=== PATIENT | female | born 1940 | race Caucasian/White ===

== ENCOUNTER 2017-06-10 08:34 | Day surgery (SDC) | payer MEDICARE, OTHER ==
[~2017-06-10] VITALS: Ht 165.1 cm; Wt 82.7 kg
[~2017-06-10 08:34] MED LIST: CALCIUM PO; CIPR250 PO; CITRACAL PO; FOLI1 PO; FOLI400 PO; LANS15EC PO; LEVSOD88 PO; LISINOPRIL PO; METTREX2.5 PO; PRAV10 PO; PRAVASTATIN SOD10 MG PO; PROBIOTIC1 EAC1 PO; Prinivil10 MG PO; TOCO400 PO; VITAMIN D PO; VITAMIN D-32000 UNIT PO; Vitamin D400 UNI1 PO; [UNRECOGNIZED DRUG - OTHER] PO
[2017-06-10] MEDS ORDERED: LOSA25 (08:52)
== END 2017-06-10 11:05 | disposition home or self-care (01) ==
LOC: ORSCSDS 08:34
DX: R19.5 Other fecal abnormalities (principal); D12.2 Benign neoplasm of ascending colon; D12.3 Benign neoplasm of transverse colon; K52.9 Noninfective gastroenteritis and colitis, unspecified; Z86.010 Personal history of colon polyps; K57.30 Diverticulosis of large intestine without perforation or abscess without bleeding; K64.8 Other hemorrhoids; K64.4 Residual hemorrhoidal skin tags; I10 Essential (primary) hypertension; E03.9 Hypothyroidism, unspecified; Z79.899 Other long term (current) drug therapy
CPT/HCPCS: 88305; J1980

== ENCOUNTER → 2023-02-21 | Outpatient (CLI) | payer MEDICARE ==
[~2023-02-21] MED LIST changes: +LOSA25; +METHOTREXATE2.510 PO; +OLMESARTAN-HCT1 EAC5 PO; +XARELTO20 MG PO
[2023-02-22 12:23] LABS: Stool Occult Bld Immuno 1 Positive (NEGATIVE)
== END | disposition home or self-care (01) ==
LOC: LAB 10:00 → LAB SHORT 10:00
PROVIDERS: Internal Medicine
DX: D53.9 Nutritional anemia, unspecified (principal)
CPT/HCPCS: 82274

== ENCOUNTER 2023-02-25 16:42 | Inpatient (IN) | payer MEDICARE, OTHER ==
[~2023-02-25] VITALS: Ht 165.1 cm; Wt 66.5 kg
[~2023-02-25 16:42] MED LIST changes: -METHOTREXATE2.510 PO; -OLMESARTAN-HCT1 EAC5 PO; -XARELTO20 MG PO
[2023-02-25 17:50] LABS: BASOPHILS ABSOLUTE AUTO 0.12 K/mm3 (0.00-0.23); BASOPHILS PERCENT AUTO 1 % (0-2); EOSINOPHILS PERCENT AUTO 2 % (0-6); Hematocrit 23.6 % (33.0-51.0); Hemoglobin 7.3 g/dL (11.5-16.0); IMMATURE GRAN ABSOLUTE AUTO 0.29 K/mm3 (0.00-0.10); IMMATURE GRAN PERCENT AUTO 2 % (0-1); LYMPHOCYTES ABSOLUTE AUTO 1.97 K/mm3 (0.84-5.20); LYMPHOCYTES PERCENT AUTO 13 % (21-46); MONOCYTES ABSOLUTE AUTO 1.22 K/mm3 (0.16-1.47); MONOCYTES PERCENT AUTO 8 % (4-13); Mean Corpuscular HGB 26.7 pg (26.0-34.0); Mean Corpuscular HGB Conc 30.9 g/dL (31.5-36.5); Mean Corpuscular Volume 86 fL (80-100); Mean Platelet Volume 9.6 fL (9.1-12.4); NEUTROPHILS PERCENT AUTO 74 % (41-73); Platelet Count 418 K/mm3 (150-400); RDW Coefficient Variation 14.2 % (11.7-14.2); RDW Standard Deviation 43.6 fL (35.1-46.3); Red Blood Cell Count 2.73 M/mm3 (3.80-5.20)
[2023-02-25 17:58] LABS: International Normalized Ratio 1.14; Prothrombin Time Results 11.9 Sec (9.7-11.5)
[2023-02-25 18:08] LABS: Albumin, Blood 3.3 g/dL (3.4-5.0); Albumin/Globulin Ratio 0.7 (0.8-1.8); Bilirubin, Total 0.3 mg/dL (0.1-1.0); Bun/Creatinine Ratio 22.4 (12.0-20.0); Calcium, Blood 9.7 mg/dL (8.5-10.1); Creatinine, Blood 0.94 mg/dL (0.40-1.00); Globulin, Blood 4.6 g/dL (2.2-4.0); Potassium, Blood 3.9 mmol/L (3.5-5.5); Total Protein, Blood 7.9 g/dL (6.4-8.2)
[2023-02-25] MEDS ORDERED: METHOTREXATE2.510 PO (19:21)
[2023-02-25] MEDS ORDERED: OLMESARTAN-HCT1 EAC5 PO (19:22)
[2023-02-25] MEDS ORDERED: XARELTO20 MG PO (19:24)
[2023-02-26] VITALS (27 sets, daily range): BP systolic 98–151; BP diastolic 42–81
[2023-02-26 04:45] LABS: Bun/Creatinine Ratio 19.1 (12.0-20.0); Calcium, Blood 8.6 mg/dL (8.5-10.1); Creatinine, Blood 0.89 mg/dL (0.40-1.00); Potassium, Blood 3.9 mmol/L (3.5-5.5)
--- NOTE | 2023-02-26 05:13 | NUR ---
GEOLOGICAL SCIENCE TEACHER SUMMARY PT ARRIVES ER ADMIT. UPON ARRIVAL SHE IS ALERT, ORIENTED, NONDISTRESSED, C/O NO PAIN NO NAUSEA NO VOMITING. NO CP OR SOB. LUNGS ARE CLEAR SKIN IS WELL CONDITIONED. NVI. PT ABLE TO AMBULATE INDEPENDENTLY TO BATHROOM THIS SHIFT, HER FAMILY MEMBER REMAINS AT BEDSIDE WITH HER. NO ACUTE CHANGES.
[2023-02-26 10:21] LABS: Hematocrit 21.8 % (33.0-51.0); Hemoglobin 6.6 g/dL (11.5-16.0)
[2023-02-26 17:49] LABS: Hematocrit 25.1 % (33.0-51.0); Hemoglobin 7.9 g/dL (11.5-16.0)
--- NOTE | 2023-02-26 17:53 | NUR ---
SHIFT SUMMARY PT A&OX4. SP02>90% ON RA. TELEMETRY SHOWS NSR, HR 60'S-70'S. BP SOFT THIS AM. REPEAT H&H LOW, SEE RESULTS. CALL PLACED TO MD ALONZO. MD ALONZO W/ ORDERS FOR 1 UNIT PRBC. INFUSED PER PROTOCOL. AWAITING RESULTS FOR REPEAT H&H. BP INCREASED AFTER INFUSION. ECHO DONE THIS SHIFT, SEE RESULTS. PT UP INDEPENDENTLY TO BATHROOM TO VOID. DENIES DIZZINESS/LIGHTHEADEDNESS. PT NPO SINCE NOON FOR PROCEDURE. NEW IV IN R FOREARM. PT TO SCOPE AT 1830. MULTIPLE FAMILY IN ROOM
--- NOTE | 2023-02-26 19:24 | NUR ---
02/26/231923 Dayday Bernal HISTORY, CHART, MEDICATIONS AND ALLERGIES REVIEWED BEFORE START OF PROCEDURE. PATIENT CONFIRMS NPO STATUS AND AGREES WITH SCHEDULED PROCEDURE. 3-LEAD EKG REVIEWED WITH PHYSICIAN PRIOR TO START OF PROCEDURE. MONITOR INTACT WITH CONTINUOUS PULSE OXIMETRY,CAPNOGRAPHY, 3-LEAD EKG, INTERMITTENT BP. SUPPLEMENTAL O2 TO BE TITRATED THROUGHOUT PROCEDURE TO MAINTAIN O2 SATURATION ABOVE 90%. PATIENT DETERMINED TO BE ASA APPROPRIATE FOR PROPOFOL SEDATION PRIOR TO START OF PROCEDURE BY DR. CEJA. Bite Block Placed.
--- NOTE | 2023-02-26 20:12 | NUR ---
ASSUMPTION OF CARE: PATIENT IS ALERT AND ORIENTED, NO SIGNS OF CARDIAC OR PULM DISTRESS. IS ON RA. DID RECIEVE PROPOFOL DURING EGD. DR. CEJA GOING OVER ABNORMAL RESULTS WITH PATIENT AND SON. PATIENT WILL NOT NEED COLOPREP ACCORDING TO THE RETURNING DAY BRICK VENEER MAKER. WILL FOLLOW UP WITH DR. CEJA. AFEBRILE AND VSS. DENIES CHEST PAIN PRESSURE OR SOB. 1P TX A THIS TIME DUE TO RECENT ADMINISTRATION OF PROP. TELE IN PLACE.
[2023-02-27 03:36] VITALS: BP 115/50
--- NOTE | 2023-02-27 03:42 | NUR ---
EOS: ONLY CHANGES FROM ASSUMPTION OF CARE IS VSS BLOOD PRESSURE SLOWLY TRENDING DOWN, ANTICIPATING DROPPED Hgb ON AM LABS. A/O X 4, SON IN THE ROOM, NO CONCERNS AT THIS TIME. STILL DENYING CHEST PAIN PRESSURE OR SOB.
[2023-02-27 04:59] LABS: BASOPHILS ABSOLUTE AUTO 0.12 K/mm3 (0.00-0.23); BASOPHILS PERCENT AUTO 1 % (0-2); EOSINOPHILS ABSOLUTE AUTO 0.32 K/mm3 (0.00-0.68); EOSINOPHILS PERCENT AUTO 3 % (0-6); Hematocrit 24.7 % (33.0-51.0); Hemoglobin 7.9 g/dL (11.5-16.0); IMMATURE GRAN PERCENT AUTO 2 % (0-1); LYMPHOCYTES ABSOLUTE AUTO 1.41 K/mm3 (0.84-5.20); LYMPHOCYTES PERCENT AUTO 12 % (21-46); MONOCYTES ABSOLUTE AUTO 1.12 K/mm3 (0.16-1.47); MONOCYTES PERCENT AUTO 9 % (4-13); Mean Corpuscular HGB 27.2 pg (26.0-34.0); Mean Corpuscular Volume 85 fL (80-100); Mean Platelet Volume 9.6 fL (9.1-12.4); NEUTROPHILS ABSOLUTE AUTO 9.11 K/mm3 (1.96-9.15); NEUTROPHILS PERCENT AUTO 74 % (41-73); Platelet Count 355 K/mm3 (150-400); RDW Standard Deviation 43.2 fL (35.1-46.3); White Blood Cell Count 12.28 K/mm3 (4.00-11.30)
[2023-02-27 05:44] LABS: Magnesium, Blood 2.1 mg/dL (1.6-2.4)
[2023-02-27 05:45] LABS: Albumin, Blood 2.7 g/dL (3.4-5.0); Anion Gap 6 mmol/L (6-16); Blood Urea Nitrogen 12 mg/dL (8-24); Bun/Creatinine Ratio 13.9 (12.0-20.0); CO2, Blood 28 mmol/L (21-32); Calcium, Blood 8.6 mg/dL (8.5-10.1); Chloride, Blood 105 mmol/L (98-108); Creatinine, Blood 0.87 mg/dL (0.40-1.00); Glomerular Filtration Rate 67 (60-); Glucose, Blood 92 mg/dL (70-99); Phosphorus, Blood 3.4 mg/dL (2.5-4.9); Potassium, Blood 3.9 mmol/L (3.5-5.5); Sodium, Blood 139 mmol/L (136-145)
[2023-02-27 08:32] VITALS: BP 116/63
[2023-02-27 12:30] VITALS: BP 108/49
[2023-02-27 14:17] LABS: Hematocrit 26.8 % (33.0-51.0); Hemoglobin 8.6 g/dL (11.5-16.0)
--- NOTE | 2023-02-27 15:07 | NUR ---
Spiritual care visit conducted. Patient is sitting up in bed and alert. Patient has so many family at bedside that it is standing room only in the . THe family is very warm and supportive of the patient. Patient has a strong voice and has the attention of all in the room. She talks about her strong telly and the comfort that she gains from it. They all explain the plan for the medical care of the patient and their concerns. I normalize their experience and provide therapeutic listening, theological insights and prayer. Patient responded well and becomes tearful during the prayer. She and the family voice much appreciation for the time and prayer. I will continue to remain available to patient and family.
[2023-02-27 16:16] VITALS: BP 124/55
[2023-02-27 20:25] VITALS: BP 132/66
[2023-02-28] VITALS (22 sets, daily range): BP systolic 61–144; BP diastolic 33–94
[2023-02-28 05:00] LABS: BASOPHILS ABSOLUTE AUTO 0.09 K/mm3 (0.00-0.23); BASOPHILS PERCENT AUTO 1 % (0-2); EOSINOPHILS PERCENT AUTO 3 % (0-6); Hematocrit 25.5 % (33.0-51.0); Hemoglobin 8.2 g/dL (11.5-16.0); IMMATURE GRAN ABSOLUTE AUTO 0.22 K/mm3 (0.00-0.10); IMMATURE GRAN PERCENT AUTO 2 % (0-1); LYMPHOCYTES ABSOLUTE AUTO 1.26 K/mm3 (0.84-5.20); LYMPHOCYTES PERCENT AUTO 10 % (21-46); MONOCYTES ABSOLUTE AUTO 1.24 K/mm3 (0.16-1.47); MONOCYTES PERCENT AUTO 10 % (4-13); Mean Corpuscular HGB 27.2 pg (26.0-34.0); Mean Corpuscular HGB Conc 32.2 g/dL (31.5-36.5); Mean Corpuscular Volume 85 fL (80-100); Mean Platelet Volume 9.4 fL (9.1-12.4); NEUTROPHILS ABSOLUTE AUTO 9.18 K/mm3 (1.96-9.15); NEUTROPHILS PERCENT AUTO 74 % (41-73); Platelet Count 325 K/mm3 (150-400); RDW Coefficient Variation 14.4 % (11.7-14.2); Red Blood Cell Count 3.01 M/mm3 (3.80-5.20); White Blood Cell Count 12.39 K/mm3 (4.00-11.30)
[2023-02-28 05:23] LABS: Magnesium, Blood 2.4 mg/dL (1.6-2.4)
[2023-02-28 05:24] LABS: Albumin, Blood 2.8 g/dL (3.4-5.0); Albumin/Globulin Ratio 0.7 (0.8-1.8); Bilirubin, Total 0.7 mg/dL (0.1-1.0); Calcium, Blood 8.4 mg/dL (8.5-10.1); Creatinine, Blood 1.07 mg/dL (0.40-1.00); Globulin, Blood 3.9 g/dL (2.2-4.0); Phosphorus, Blood 2.8 mg/dL (2.5-4.9); Potassium, Blood 3.9 mmol/L (3.5-5.5); Total Protein, Blood 6.7 g/dL (6.4-8.2)
--- NOTE | 2023-02-28 07:02 | NUR ---
PT HAS 20G IV TO LEFT AC THAT FLUSHES WELL AND FLOWS TO GRAVITY.
--- NOTE | 2023-02-28 07:32 | NUR ---
02/28/23 0732 Hortencia Nava HISTORY, CHART, MEDICATIONS AND ALLERGIES REVIEWED BEFORE START OF PROCEDURE. PATIENT CONFIRMS NPO STATUS AND AGREES WITH SCHEDULED PROCEDURE. 3-LEAD EKG REVIEWED WITH PHYSICIAN PRIOR TO START OF PROCEDURE. MONITOR INTACT WITH CONTINUOUS PULSE OXIMETRY,CAPNOGRAPHY, 3-LEAD EKG, INTERMITTENT BP. SUPPLEMENTAL O2 TO BE TITRATED THROUGHOUT PROCEDURE TO MAINTAIN O2 SATURATION ABOVE 90%. PATIENT DETERMINED TO BE ASA APPROPRIATE FOR PROPOFOL SEDATION PRIOR TO START OF PROCEDURE BY DR. CEJA
--- NOTE | 2023-02-28 09:37 | NUR ---
ASSUMED CARE OF PT AT APROX 0800 WHEN PT RETURNED FROM EGD PROCEDURE. PT ARRIVES BACK TO ROOM PCU11 A&OX4, ABLE TO STAND AND TRANSFER FROM GURNEY TO BED, DENIES ABD PAIN. POST PROCEDURE VITALS STARTED AND EXPLAINED TO PT. FAMILY AT BEDSIDE ARE UPDATED. PT IS GIVEN BREAKFAST AND DR CEJA AT BEDSIDE TO DISCUSS FINDINGS WITH PT AND FAMILY. LATER IN THE AM, DR ALONZO AT BEDSIDE TO UPDATE PT AND FAMILY ON PLAN OF CARE. PT AND FAMILY ARE AGREEABLE WITH PLAN. PT DENIES NEEDS AT THIS TIME. CALL LIGHT IN REACH. WILL CONTINUE TO MONITOR.
--- NOTE | 2023-02-28 17:50 | NUR ---
NO ACUTE CHANGES T/O THE SHIFT. PT HAS DENIED ABD PAIN ALL DAY. VSS. PLAN IS FOR AM LABS AND POSSIBLE D/C HOME IF H/H STABLE. PT WILL FOLLOW UP FOR AN OUTPT IVC FILTER PLACEMENT EARLY NEXT WEEK. PT IS ABLE TO USE CALL LIGHT FOR NEEDS, CALL LIGHT IN REACH, WILL CONTINUE TO MONITOR AND GIVE REPORT TO ONCOMING SHIFT RN.
[2023-03-01 00:38] VITALS: BP 114/68
[2023-03-01 04:54] VITALS: BP 128/60
[2023-03-01 05:18] LABS: BASOPHILS ABSOLUTE AUTO 0.09 K/mm3 (0.00-0.23); BASOPHILS PERCENT AUTO 1 % (0-2); EOSINOPHILS ABSOLUTE AUTO 0.37 K/mm3 (0.00-0.68); EOSINOPHILS PERCENT AUTO 3 % (0-6); Hematocrit 26.1 % (33.0-51.0); Hemoglobin 8.3 g/dL (11.5-16.0); IMMATURE GRAN ABSOLUTE AUTO 0.24 K/mm3 (0.00-0.10); IMMATURE GRAN PERCENT AUTO 2 % (0-1); LYMPHOCYTES ABSOLUTE AUTO 1.44 K/mm3 (0.84-5.20); LYMPHOCYTES PERCENT AUTO 12 % (21-46); MONOCYTES ABSOLUTE AUTO 1.26 K/mm3 (0.16-1.47); MONOCYTES PERCENT AUTO 10 % (4-13); Mean Corpuscular HGB 26.9 pg (26.0-34.0); Mean Corpuscular HGB Conc 31.8 g/dL (31.5-36.5); Mean Corpuscular Volume 85 fL (80-100); Mean Platelet Volume 9.8 fL (9.1-12.4); NEUTROPHILS ABSOLUTE AUTO 9.04 K/mm3 (1.96-9.15); NEUTROPHILS PERCENT AUTO 73 % (41-73); Platelet Count 309 K/mm3 (150-400); RDW Coefficient Variation 14.4 % (11.7-14.2); RDW Standard Deviation 44.2 fL (35.1-46.3); Red Blood Cell Count 3.08 M/mm3 (3.80-5.20); White Blood Cell Count 12.44 K/mm3 (4.00-11.30)
--- NOTE | 2023-03-01 05:28 | NUR ---
SHIFT SUMMARY PATIENT ALERT AND ORIENTED x4, ABLE TO MAKE NEEDS KNOWN TO STAFF. SON AT BEDSIDE DURING THE NIGHT. VITALS STABLE. TELE READING SR 60s DURING THE NIGHT, REMAINED ON RA WITH SPO2 >90%. PATIENT INDEPENDENT IN THE ROOM, AMBULATING INTO THE BATHROOM. ADEQUATE OUTPUT. DENIES BLACK OR TARRY STOOLS DURING THE NIGHT. NO OTHER SIGNIFICANT CHANGES THIS SHIFT, WILL REPORT TO DAY SHIFT RN.
[2023-03-01 06:41] LABS: Albumin, Blood 2.7 g/dL (3.4-5.0); Albumin/Globulin Ratio 0.7 (0.8-1.8); Bilirubin, Total 0.6 mg/dL (0.1-1.0); Bun/Creatinine Ratio 14.6 (12.0-20.0); Calcium, Blood 8.2 mg/dL (8.5-10.1); Creatinine, Blood 1.03 mg/dL (0.40-1.00); Globulin, Blood 4.1 g/dL (2.2-4.0); Potassium, Blood 3.9 mmol/L (3.5-5.5); Total Protein, Blood 6.8 g/dL (6.4-8.2)
[2023-03-01] MEDS ORDERED: PANT40 PO (08:25)
[2023-03-01] MEDS ORDERED: ONDA4 PO (08:25)
[2023-03-01] MEDS ORDERED: Acetaminophen650 M1 PO (08:26)
[2023-03-01 08:58] VITALS: BP 120/56
== END 2023-03-01 09:23 | disposition home or self-care (01) | DRG 375 ==
LOC: ER 16:42 → PCU 23:33
PROVIDERS: Family Medicine; Internal Medicine Gastroenterology; Nurse Practitioner Acute Care; Physician Assistant; ADMIT Internal Medicine
PROC: 0DJ08ZZ Inspection of Upper Intestinal Tract, Via Natural or Artificial Opening Endoscopic (ICD-10-PCS; 2023-02-26)
PROC: 30233N1 Transfusion of Nonautologous Red Blood Cells into Peripheral Vein, Percutaneous Approach (ICD-10-PCS; 2023-02-26)
PROC: B24BZZZ Ultrasonography of Heart with Aorta (ICD-10-PCS; 2023-02-26)
PROC: 0DB68ZX Excision of Stomach, Via Natural or Artificial Opening Endoscopic, Diagnostic (ICD-10-PCS; principal; 2023-02-28 07:30)
DX: C16.2 Malignant neoplasm of body of stomach (principal); C77.1 Secondary and unspecified malignant neoplasm of intrathoracic lymph nodes; D62 Acute posthemorrhagic anemia; K92.1 Melena; C77.2 Secondary and unspecified malignant neoplasm of intra-abdominal lymph nodes; C78.7 Secondary malignant neoplasm of liver and intrahepatic bile duct; I82.403 Acute embolism and thrombosis of unspecified deep veins of lower extremity, bilateral; R01.1 Cardiac murmur, unspecified; I10 Essential (primary) hypertension; E78.5 Hyperlipidemia, unspecified; E03.9 Hypothyroidism, unspecified; L40.9 Psoriasis, unspecified; I83.93 Asymptomatic varicose veins of bilateral lower extremities; H18.519 Endothelial corneal dystrophy, unspecified eye; E66.9 Obesity, unspecified; D72.829 Elevated white blood cell count, unspecified; Z79.69 Long term (current) use of other immunomodulators and immunosuppressants; Z79.01 Long term (current) use of anticoagulants; Z88.2 Allergy status to sulfonamides; Z86.010 Personal history of colon polyps; Z87.19 Personal history of other diseases of the digestive system; Z79.890 Hormone replacement therapy
CPT/HCPCS: 36415; 71260; 74177; 80048; 80053; 80069; 83010; 83735; 84100; 84484; 85014; 85018; 85025; 85610; 86850; 86900; 86901; 86923; 93005; 93010; 93306; 96374; 99285-25; A9270; C9113; J2704; J7120; P9016; Q9967

== ENCOUNTER 2023-03-04 10:03 | Observation (INO) | payer MEDICARE, OTHER ==
[2023-03-04] VITALS (9 sets, daily range): BP systolic 108–134; BP diastolic 41–54
[~2023-03-04] VITALS: Ht 165.1 cm; Wt 64.8 kg
[~2023-03-04 10:03] MED LIST changes: +Acetaminophen650 M1 PO; +METHOTREXATE2.510 PO; +OLMESARTAN-HCT1 EAC5 PO; +ONDA4 PO; +PANT40 PO; +XARELTO20 MG PO
[2023-03-04 14:34] LABS: Albumin, Blood 2.7 g/dL (3.4-5.0); Albumin/Globulin Ratio 0.6 (0.8-1.8); Bilirubin, Total 0.4 mg/dL (0.1-1.0); Bun/Creatinine Ratio 19.3 (12.0-20.0); Calcium, Blood 8.5 mg/dL (8.5-10.1); Creatinine, Blood 1.19 mg/dL (0.40-1.00); Globulin, Blood 4.5 g/dL (2.2-4.0); Potassium, Blood 3.8 mmol/L (3.5-5.5); Total Protein, Blood 7.2 g/dL (6.4-8.2)
[2023-03-04 14:43] LABS: BASOPHILS ABSOLUTE AUTO 0.08 K/mm3 (0.00-0.23); BASOPHILS PERCENT AUTO 1 % (0-2); EOSINOPHILS PERCENT AUTO 2 % (0-6); Hematocrit 25.8 % (33.0-51.0); Hemoglobin 8.1 g/dL (11.5-16.0); IMMATURE GRAN ABSOLUTE AUTO 0.29 K/mm3 (0.00-0.10); IMMATURE GRAN PERCENT AUTO 2 % (0-1); LYMPHOCYTES ABSOLUTE AUTO 1.86 K/mm3 (0.84-5.20); LYMPHOCYTES PERCENT AUTO 14 % (21-46); MONOCYTES ABSOLUTE AUTO 1.24 K/mm3 (0.16-1.47); MONOCYTES PERCENT AUTO 9 % (4-13); Mean Corpuscular HGB 26.4 pg (26.0-34.0); Mean Corpuscular HGB Conc 31.4 g/dL (31.5-36.5); Mean Corpuscular Volume 84 fL (80-100); Mean Platelet Volume 10.2 fL (9.1-12.4); NEUTROPHILS ABSOLUTE AUTO 9.46 K/mm3 (1.96-9.15); NEUTROPHILS PERCENT AUTO 72 % (41-73); Platelet Count 280 K/mm3 (150-400); RDW Coefficient Variation 14.4 % (11.7-14.2); RDW Standard Deviation 44.3 fL (35.1-46.3); Red Blood Cell Count 3.07 M/mm3 (3.80-5.20); White Blood Cell Count 13.13 K/mm3 (4.00-11.30)
--- NOTE | 2023-03-04 15:06 | NUR ---
SHIFT SUMMARY AND TRANSFER PATIENT ADMITTED FOR IR WITH FILTER PLACEMENT FOR BILATERAL DVT'S. PATIENT ALERT, INTERACTIVE, AMBULATORY, AND HARD OF HEARING. PATIENT DENIES ANY PAIN. HAS SOME SORENESS, SWELLING AND TENDERNESS. POWER GLIDE PLACED BY KATLYN MACK IN R UPPER ARM. DR GARLAND CONSULTED AND PATIENT TAKEN TO CONVEYOR SYSTEM OPERATOR VIA WHEELCHAIR. FAMILY PRESENT FOR CONSULT. PATIENT TO TRANSFER TO PCU FOR RECOVERY AFTER PROCEDURE. REPORT GIVEN TO PCU.
[2023-03-04 15:38] LABS: International Normalized Ratio 1.08; Prothrombin Time Results 11.3 Sec (9.7-11.5)
--- NOTE | 2023-03-04 16:44 | NUR ---
"Spiritual Care | Pt, Request Pt. is awake in bed and welcomes my visit. Spouse and family are present. Facilitate a life review and seek to establish rapport. Pt. displays evidence of grief over what she verbalizes as her next step medically,,,an oncologgist. Listen with empathy and care. [place] for Pt. Pt. and family verbalize gratitude for the spiritual care visit and welcome this film process operator to return."
--- NOTE | 2023-03-04 21:24 | NUR ---
ASSUMPTION OF CARE/ASSESSMENT: ASSUMED CARE OF PT AT 1900. PT A&O IN BED, PLEASANT AND COMMUNICATING NEEDS APPROPRIATELY. PT HAS FAMILY MEMBER AT BEDSIDE THAT WILL BE HERE THROUGH THE NIGHT. PT CURRENTLY ON RA, SPO2 96<, LUNGS CLEAR THROUGHOUT AND DENIES SOB AT THIS TIME. PT DENIES CHEST PAIN/PRESSURE, SBP 100 AND MAP 65<. HYPOACTIVE BOWEL SOUNDS IN ALL QUADRANTS; PT TOLERATING PO INTAKE AND DENIES N/V OR ABD PAIN. SKIN OVERALL INTACT, DRY; BLE ARE WITHOUT PAIN, CAP REFIL < 3 SECONDS AND PINK/WARM. R. GROIN VENOUS ACCESS SITE LOOKS GOOD; NO BLEEDING, HEMATOMA PRESENT, NON-TENDER. PT DENIES ANY OTHER PAIN COMPLAINTS AT THIS TIME. VITAL SIGNS STABLE. BED LOWERED, CALL LIGHT IN PLACE.
[2023-03-05 00:39] VITALS: BP 134/58
[2023-03-05 03:31] VITALS: BP 100/43
[2023-03-05 03:42] LABS: BASOPHILS ABSOLUTE AUTO 0.08 K/mm3 (0.00-0.23); BASOPHILS PERCENT AUTO 1 % (0-2); EOSINOPHILS ABSOLUTE AUTO 0.29 K/mm3 (0.00-0.68); EOSINOPHILS PERCENT AUTO 3 % (0-6); Hematocrit 23.2 % (33.0-51.0); Hemoglobin 7.2 g/dL (11.5-16.0); IMMATURE GRAN ABSOLUTE AUTO 0.19 K/mm3 (0.00-0.10); IMMATURE GRAN PERCENT AUTO 2 % (0-1); LYMPHOCYTES ABSOLUTE AUTO 1.17 K/mm3 (0.84-5.20); LYMPHOCYTES PERCENT AUTO 10 % (21-46); MONOCYTES ABSOLUTE AUTO 1.17 K/mm3 (0.16-1.47); MONOCYTES PERCENT AUTO 10 % (4-13); Mean Corpuscular HGB 26.8 pg (26.0-34.0); Mean Corpuscular Volume 86 fL (80-100); NEUTROPHILS ABSOLUTE AUTO 8.93 K/mm3 (1.96-9.15); NEUTROPHILS PERCENT AUTO 75 % (41-73); Platelet Count 228 K/mm3 (150-400); RDW Coefficient Variation 14.5 % (11.7-14.2); RDW Standard Deviation 45.2 fL (35.1-46.3); Red Blood Cell Count 2.69 M/mm3 (3.80-5.20); White Blood Cell Count 11.83 K/mm3 (4.00-11.30)
[2023-03-05 04:12] LABS: Bun/Creatinine Ratio 18.1 (12.0-20.0); Calcium, Blood 7.9 mg/dL (8.5-10.1); Creatinine, Blood 1.05 mg/dL (0.40-1.00); Potassium, Blood 3.9 mmol/L (3.5-5.5)
--- NOTE | 2023-03-05 05:50 | NUR ---
SHIFT SUMMARY: NO ACUTE CHANGES THIS SHIFT; PT SLEPT FOR MAJORITY OF SHIFT. VITAL SIGNS STABLE THROUGHOUT THE NIGHT. PT HAD SOME MILD BACK PAIN AND GIVEN TYLENOL PER EMAR. PT UP TO USE BATHROOM TWICE THROUGHOUT THE NIGHT AND AMBULATES INDEPENDENTLY. NS @ 125 MLS/HR. BED LOWERED, CALL LIGHT IN REACH, WILL REPORT OFF TO ONCOMING RN.
[2023-03-05 07:35] VITALS: BP 125/52
--- NOTE | 2023-03-05 09:33 | NUR ---
PT RESTING IN BED, AWAKE VISITING WITH FAMILY AT BEDSIDE. PT DENIES PAIN OR NEEDS AT THIS TIME. CALL LIGHT IN REACH
--- NOTE | 2023-03-05 11:42 | NUR ---
PT HAS MULTIPLE FAMILY MEMBERS AT BEDSIDE. PT STATED SHE WANTED TO GO OVER DISCHARGE INSTRUCTIONS WITH FAMILY PRESENT. PT STATED UNDERSTANDING OF ALL INSTRUCTIONS AND HAD NO FOLLOW UP QUESTIONS. FAMILY TO HELP PATIENT DRESS AND IS ESCORTED OUT BY DOCKWORKER. PT TOLD ABOUT SCHEDULED FOLLOW UP APPTS WITH ONCOLOGY AND HER PCP AND STATES SHE WILL GO TO EACH ONE. VSS AND NO CONCERNS AT TIME OF DISCHARGE.
== END 2023-03-05 11:41 | disposition home or self-care (01) ==
LOC: EDSTATUS 10:05 → PCU 10:06 → MEDS 10:06 → PCU 15:57
PROVIDERS: ADMIT Internal Medicine
DX: I82.623 Acute embolism and thrombosis of deep veins of upper extremity, bilateral (principal); I10 Essential (primary) hypertension; E78.5 Hyperlipidemia, unspecified; E03.9 Hypothyroidism, unspecified; L40.9 Psoriasis, unspecified; C16.9 Malignant neoplasm of stomach, unspecified; N17.9 Acute kidney failure, unspecified; Z88.2 Allergy status to sulfonamides
CPT/HCPCS: 37191; 76937; 80048; 80053; 85025; 85610; 85730; 93971; 99152; 99153; A9270; C1751; C1769; C1880; G0378; G0379; J1644; J2250; J3010; J7030; J7040; Q9967

== ENCOUNTER → 2023-03-13 | Outpatient (CLI) | payer MEDICARE, OTHER ==
[2023-03-13 16:03] LABS: Hematocrit 27.5 % (33.0-51.0); Hemoglobin 8.4 g/dL (11.5-16.0); Mean Corpuscular HGB 25.5 pg (26.0-34.0); Mean Corpuscular HGB Conc 30.5 g/dL (31.5-36.5); Mean Corpuscular Volume 83 fL (80-100); Mean Platelet Volume 10.7 fL (9.1-12.4); Platelet Count 265 K/mm3 (150-400); RDW Coefficient Variation 15.1 % (11.7-14.2); RDW Standard Deviation 45.4 fL (35.1-46.3); White Blood Cell Count 13.74 K/mm3 (4.00-11.30)
== END | disposition home or self-care (01) ==
LOC: LAB 15:01 → LAB SHORT 15:01
PROVIDERS: Family Medicine
DX: R53.83 Other fatigue (principal)
CPT/HCPCS: 36415; 85027

== ENCOUNTER 2023-03-20 18:45 | Emergency (ER) | payer MEDICARE, OTHER ==
[~2023-03-20] VITALS: Ht 165.1 cm; Wt 66.7 kg
[2023-03-20 19:18] LABS: BASOPHILS ABSOLUTE AUTO 0.08 K/mm3 (0.00-0.23); BASOPHILS PERCENT AUTO 1 % (0-2); EOSINOPHILS ABSOLUTE AUTO 0.22 K/mm3 (0.00-0.68); EOSINOPHILS PERCENT AUTO 1 % (0-6); Hematocrit 24.3 % (33.0-51.0); Hemoglobin 7.6 g/dL (11.5-16.0); IMMATURE GRAN PERCENT AUTO 1 % (0-1); LYMPHOCYTES ABSOLUTE AUTO 1.74 K/mm3 (0.84-5.20); LYMPHOCYTES PERCENT AUTO 11 % (21-46); MONOCYTES ABSOLUTE AUTO 1.46 K/mm3 (0.16-1.47); MONOCYTES PERCENT AUTO 9 % (4-13); Mean Corpuscular HGB 25.5 pg (26.0-34.0); Mean Corpuscular HGB Conc 31.3 g/dL (31.5-36.5); Mean Corpuscular Volume 82 fL (80-100); Mean Platelet Volume 10.5 fL (9.1-12.4); NEUTROPHILS ABSOLUTE AUTO 12.37 K/mm3 (1.96-9.15); NEUTROPHILS PERCENT AUTO 77 % (41-73); Platelet Count 219 K/mm3 (150-400); RDW Coefficient Variation 16.3 % (11.7-14.2); Red Blood Cell Count 2.98 M/mm3 (3.80-5.20); White Blood Cell Count 16.07 K/mm3 (4.00-11.30)
[2023-03-20 19:56] LABS: Albumin, Blood 2.5 g/dL (3.4-5.0); Albumin/Globulin Ratio 0.5 (0.8-1.8); Bilirubin, Total 0.4 mg/dL (0.1-1.0); Bun/Creatinine Ratio 27.2 (12.0-20.0); Calcium, Blood 8.7 mg/dL (8.5-10.1); Creatinine, Blood 0.81 mg/dL (0.40-1.00); Globulin, Blood 4.8 g/dL (2.2-4.0); Potassium, Blood 3.7 mmol/L (3.5-5.5); Total Protein, Blood 7.3 g/dL (6.4-8.2)
[2023-03-20 21:00] VITALS: BP 136/47
== END 2023-03-20 21:26 | disposition home or self-care (01) ==
LOC: ER 18:45
PROVIDERS: Student in an Organized Health Care Education/Training Program
DX: R29.898 Other symptoms and signs involving the musculoskeletal system (principal); Z88.2 Allergy status to sulfonamides; Z79.899 Other long term (current) drug therapy
CPT/HCPCS: 70450; 80053; 85025; 93005; 93010; 99285-25

== ENCOUNTER → 2024-05-14 | Outpatient (CLI) | payer MEDICARE, OTHER ==
[2024-05-15 13:27] LABS: C DIFFICILE DNA POSITIVE (Negative)
== END | disposition home or self-care (01) ==
LOC: LAB SHORT 18:30 → LAB 18:30 → LAB SHORT 05-15 10:51
PROVIDERS: Family Medicine
DX: R19.7 Diarrhea, unspecified (principal)
CPT/HCPCS: 87324; 87493

== ENCOUNTER 2024-05-24 10:07 | Emergency (ER) | payer MEDICARE, OTHER ==
[~2024-05-24] VITALS: Ht 170.2 cm; Wt 61.2 kg
[~2024-05-24 10:07] MED LIST changes: +Rocuronium Bromide 10 MG/ML 5ML Injection IV ONE
[2024-05-24] MEDS ORDERED: LORazepam 2 MG/ML 1ML Injection IV ONE (10:25)
[2024-05-24] MEDS ORDERED: LEVETIRACETAM IV ONE (10:25)
[2024-05-24] MEDS ORDERED: levETIRAcetam 1,500 MG in NS 100 ML IV ONE (10:25)
[2024-05-24] MEDS ORDERED: NS IV ONE (10:25)
[2024-05-24] MEDS ORDERED: Piperacillin/Tazobactam Sod 3.375 GM in NS 100 ML IV ONE ×2 (10:45→14:30)
[2024-05-24] MEDS ORDERED: Vancomycin HCL 2,000 MG in NS 520 ML IV ONE (10:45)
[2024-05-24] MEDS ORDERED: Acetaminophen 650 MG Supp PR ONE (10:45)
[2024-05-24 10:51] LABS: BASOPHILS ABSOLUTE AUTO 0.12 K/mm3 (0.00-0.23); BASOPHILS PERCENT AUTO 1 % (0-2); EOSINOPHILS PERCENT AUTO 4 % (0-6); Hematocrit 41.5 % (33.0-51.0); Hemoglobin 13.8 g/dL (11.5-16.0); IMMATURE GRAN PERCENT AUTO 1 % (0-1); LYMPHOCYTES ABSOLUTE AUTO 1.82 K/mm3 (0.84-5.20); LYMPHOCYTES PERCENT AUTO 17 % (21-46); MONOCYTES ABSOLUTE AUTO 1.18 K/mm3 (0.16-1.47); MONOCYTES PERCENT AUTO 11 % (4-13); Mean Corpuscular HGB 26.7 pg (26.0-34.0); Mean Corpuscular HGB Conc 33.3 g/dL (31.5-36.5); Mean Corpuscular Volume 80 fL (80-100); Mean Platelet Volume 9.9 fL (9.1-12.4); NEUTROPHILS ABSOLUTE AUTO 6.86 K/mm3 (1.96-9.15); NEUTROPHILS PERCENT AUTO 65 % (41-73); Platelet Count 260 K/mm3 (150-400); RDW Coefficient Variation 13.4 % (11.7-14.2); Red Blood Cell Count 5.17 M/mm3 (3.80-5.20); White Blood Cell Count 10.48 K/mm3 (4.00-11.30)
[2024-05-24 11:13] LABS: Source, Urine Foley catheter
[2024-05-24 11:22] LABS: Bilirubin, Urine Neg (Neg); Blood, Urine 3+ (Neg); Glucose Qualitative, Urine Neg (Neg); Ketones, Urine 4+ (Neg); Leukocyte Esterase, Urine 2+ (Neg); Nitrite, Urine Pos (Neg); Protein, Urine 1+ (Neg); Urobilinogen, Urine 2+ (Normal)
[2024-05-24 11:34] LABS: Appearance, Urine Hazy (Clear); Bacteria Many /hpf; Color, Urine Yellow (P-Yellow); Squamous Epithelial Cells Rare /hpf (Few)
[2024-05-24 11:39] LABS: International Normalized Ratio 1.07; Prothrombin Time Results 11.4 Sec (9.7-11.5)
[2024-05-24] MEDS ORDERED: Midazolam HCl 1MG / ML 2ML Vial IV ONE (11:50)
[2024-05-24 12:14] LABS: Albumin, Blood 2.8 g/dL (3.4-5.0); Albumin/Globulin Ratio 0.5 (0.8-1.8); Bilirubin, Total 1.4 mg/dL (0.1-1.0); Bun/Creatinine Ratio 21.6 (12.0-20.0); Calcium, Blood 9.9 mg/dL (8.5-10.1); Creatinine, Blood 0.74 mg/dL (0.40-1.00); Globulin, Blood 5.2 g/dL (2.2-4.0); Potassium, Blood 3.8 mmol/L (3.5-5.5)
[2024-05-24] MEDS ORDERED: NS 1,000 ML IV ONE (12:22)
[2024-05-24] MEDS ORDERED: fentaNYL citrate 1,000 MCG in NS 80 ML IV SCH (12:30)
[2024-05-24] MEDS ORDERED: Midazolam HCL 50 MG in NS 40 ML IV PRN (12:30)
[2024-05-24] MEDS ORDERED: NS 1,000 ML IV SCH (12:30)
[2024-05-24 14:15] VITALS: BP 128/70
[2024-05-24] MEDS ORDERED: DiphenhydrAMINE HCl 50 MG/ML 1ML Vial ONE (14:26)
--- NOTE | 2024-05-24 15:12 | NUR ---
Met with pt's 3 adult children this am. They report the patient does have stomach cancer, but is currently in treatment, and has remained A&O, living independently. They state they patient c/o being "more tired than usual" last night, but then went to bed. It was upon waking this morning that the family noticed a problem. They report the patient began to have what appeared to be seizures and was suddenly unable to communicate. They deny pt having any deficits prior to this am. Pt to be intubated and transferred to ICU for seizure control.
== END 2024-05-24 14:54 | disposition home or self-care (01) ==
LOC: ER 10:07
PROVIDERS: Student in an Organized Health Care Education/Training Program
DX: G40.901 Epilepsy, unspecified, not intractable, with status epilepticus (principal); R41.82 Altered mental status, unspecified; N39.0 Urinary tract infection, site not specified; I10 Essential (primary) hypertension; E78.5 Hyperlipidemia, unspecified; E03.9 Hypothyroidism, unspecified; Z79.899 Other long term (current) drug therapy; Z88.2 Allergy status to sulfonamides
CPT/HCPCS: 31500; 36415; 51702; 70450; 71045; 71260; 74177; 80053; 81001; 82140; 83605; 83690; 84484; 85025; 85610; 87040; 93005; 93010; 94002; 96365-59; 96366-59; 96367-59; 96375-59; 99285-25; A9270; J1200; J1953; J2060; J2250; J2543; J3010; J3370; J7030; J7040; Q9967

== ENCOUNTER 2024-06-03 10:11 | Observation (INO) | payer MEDICARE, OTHER ==
[~2024-06-03] VITALS: Ht 165.1 cm; Wt 59.5 kg
[~2024-06-03 10:11] MED LIST changes: +Enoxaparin 40 MG/0.4 ML SYR SC SCH; -Rocuronium Bromide 10 MG/ML 5ML Injection IV ONE
[2024-06-03] MEDS ORDERED: LEVETIRACETAM1000 M1 PO (10:50)
[2024-06-03] MEDS ORDERED: EUTHYROX100 MC1 PO (10:50)
[2024-06-03] MEDS ORDERED: Ondansetron Odt8 MG MM (10:51)
[2024-06-03] MEDS ORDERED: Aspir 8181 MG PO (10:51)
[2024-06-03] MEDS ORDERED: DOCU100 PO (10:52)
[2024-06-03] MEDS ORDERED: VITAMIN B121000 MCG PO (10:52)
[2024-06-03] MEDS ORDERED: C COMPLEX1000 M1 PO (10:52)
[2024-06-03] MEDS ORDERED: FURO20 PO (10:52)
[2024-06-03 11:03] LABS: CORONAVIRUS COVID-19 AG Negative (NEGATIVE); INFLUENZA A AG Negative (NEGATIVE); INFLUENZA B AG Negative (NEGATIVE)
[2024-06-03 11:05] LABS: BASOPHILS ABSOLUTE AUTO 0.11 K/mm3 (0.00-0.23); BASOPHILS PERCENT AUTO 1 % (0-2); EOSINOPHILS ABSOLUTE AUTO 1.68 K/mm3 (0.00-0.68); EOSINOPHILS PERCENT AUTO 19 % (0-6); Hematocrit 35.8 % (33.0-51.0); Hemoglobin 11.9 g/dL (11.5-16.0); IMMATURE GRAN ABSOLUTE AUTO 0.32 K/mm3 (0.00-0.10); IMMATURE GRAN PERCENT AUTO 4 % (0-1); LYMPHOCYTES ABSOLUTE AUTO 1.61 K/mm3 (0.84-5.20); LYMPHOCYTES PERCENT AUTO 19 % (21-46); MONOCYTES ABSOLUTE AUTO 0.64 K/mm3 (0.16-1.47); MONOCYTES PERCENT AUTO 7 % (4-13); Mean Corpuscular HGB 26.7 pg (26.0-34.0); Mean Corpuscular HGB Conc 33.2 g/dL (31.5-36.5); Mean Corpuscular Volume 80 fL (80-100); Mean Platelet Volume 8.7 fL (9.1-12.4); NEUTROPHILS ABSOLUTE AUTO 4.31 K/mm3 (1.96-9.15); NEUTROPHILS PERCENT AUTO 50 % (41-73); Platelet Count 394 K/mm3 (150-400); RDW Coefficient Variation 13.9 % (11.7-14.2); RDW Standard Deviation 40.2 fL (35.1-46.3); Red Blood Cell Count 4.46 M/mm3 (3.80-5.20); White Blood Cell Count 8.67 K/mm3 (4.00-11.30)
[2024-06-03 11:26] LABS: Albumin, Blood 2.2 g/dL (3.4-5.0); Albumin/Globulin Ratio 0.5 (0.8-1.8); Bilirubin, Total 0.4 mg/dL (0.1-1.0); Bun/Creatinine Ratio 12.8 (12.0-20.0); Calcium, Blood 8.8 mg/dL (8.5-10.1); Creatinine, Blood 0.55 mg/dL (0.40-1.00); Globulin, Blood 4.3 g/dL (2.2-4.0); Potassium, Blood 3.4 mmol/L (3.5-5.5); Total Protein, Blood 6.5 g/dL (6.4-8.2)
[2024-06-03 12:02] LABS: Source, Urine Clean Catch
[2024-06-03 12:10] LABS: Appearance, Urine Clear (Clear); Bilirubin, Urine Neg (Neg); Blood, Urine 1+ (Neg); Color, Urine Yellow (P-Yellow); Glucose Qualitative, Urine Neg (Neg); Ketones, Urine Neg (Neg); Leukocyte Esterase, Urine 2+ (Neg); Nitrite, Urine Neg (Neg); Protein, Urine Neg (Neg); Urobilinogen, Urine NORM (Normal)
[2024-06-03 12:18] LABS: Squamous Epithelial Cells Mod /hpf (Few)
[2024-06-03 12:21] LABS: Bacteria Few /hpf
[2024-06-03] MEDS ORDERED: Metoclopramide HCl 5MG / ML 2ML Vial IV ONE (12:40)
[2024-06-03] MEDS ORDERED: Magnesium Sulf 2 GM/Water 50ML 50 ML IV ONE (13:05)
[2024-06-03] MEDS ORDERED: Potassium Chloride 20 MEQ TabCR PO ONE (13:05)
[2024-06-03] MEDS ORDERED: Potassium Chl 20MEQ/Water100ML 100 ML IV ONE (13:05)
[2024-06-03] MEDS ORDERED: NS 1,000 ML IV SCH ×2 (13:05→23:45)
[2024-06-03] MEDS ORDERED: Potassium Chloride 20 MEQ in NS 90 ML IV ONE (13:15)
[2024-06-03 14:43] LABS: Source, Urine Straight Cath
[2024-06-03 14:51] LABS: Appearance, Urine Clear (Clear); Bilirubin, Urine Neg (Neg); Blood, Urine 1+ (Neg); Color, Urine Yellow (P-Yellow); Glucose Qualitative, Urine Neg (Neg); Ketones, Urine Neg (Neg); Leukocyte Esterase, Urine Neg (Neg); Nitrite, Urine Neg (Neg); Protein, Urine Neg (Neg); Urobilinogen, Urine NORM (Normal)
[2024-06-03 15:04] LABS: Red Blood Cells, Urine 0-2 /hpf (0-2); White Blood Cells, Urine 0-2 /hpf (0-5)
[2024-06-03 15:05] LABS: Bacteria Few /hpf; Calcium Oxalate Crystals Mod /hpf; Squamous Epithelial Cells Few /hpf (Few)
[2024-06-03] MEDS ORDERED: Pantoprazole Sodium 40 MG Injection IV ONE (15:50)
[2024-06-03] MEDS ORDERED: Sucralfate 1000MG / 10ML UD BTL PO ONE (15:50)
[2024-06-03] MEDS ORDERED: DiphenhydrAMINE HCl 50 MG/ML 1ML Vial IV ONE (15:55)
[2024-06-03] MEDS ORDERED: MethylPREDNISolone Sod Succ 125 MG Vial IV ONE (15:55)
[2024-06-03] MEDS ORDERED: FLU VACC TS2024-25(6MOS UP)/PF 45 MCG/0.5 ML SYRINGE IM SCH (23:55)
[2024-06-03] MEDS ORDERED: Ondansetron HCl 2 MG / ML 2ML Vial IV PRN (23:55)
[2024-06-04 02:40] VITALS: BP 107/51
[2024-06-04] MEDS ORDERED: Ampicillin Sod/Sulbactam Sod 3 GM in NS 100 ML IV SCH ×2 (03:15→09:14)
[2024-06-04] MEDS ORDERED: Albumin (Human) 25gm/100ml 100 ML IV ONE (03:35)
--- NOTE | 2024-06-04 05:16 | NUR ---
NEW ADMIT/LOG CUTTER SUMMARY NEW ADMIT FOR ACUTE RESP FAILURE. PT ARRIVED TO ROOM AT 0150. SLIDER SHEET USED TO TRANSFER. PT GENERALIZED WEAKNESS AND ACTIVITY INTOLERANCE. PT A/OX3. PT LETHARGIC BUT ARROUSABLE. ABLE TO FOLLOW COMMANDS. SLOW TO RESPOND WITH DIFFICULT RECALL. PT HAS BLANCHING REDNESS TO COCCYX. MEPILEX PLACED. PT SKIN IS DRY AND FRAGILE. PT HX OF GASTRIC ADENOCARCINOMA. PT REPORTS SHE HAS NAUSEA FREQUENTLY BUT DENIES AT THIS TIME. PT ENSORSES POOR APPETITE FOR THE PAST SEVERAL DAYS. PT IS NPO PENDING SPEECH EVAL. PT ON TELE; NORMAL SINUS AT 73. PT ALSO CURRENLTY HAS A ZIO PATCH IN PLACE AND RECORDING MONITOR ON HER PERSON WHEN SHE ARRIVED--DEVICE PLUGGED IN TO MAINTAIN CHARGE. PT IS ON 2LP NASAL CANNULA. PT HAS SPUTUM CULTURE ORDERED BUT PT HAS NOT BEEN COUGHING. PURE WICK IN PLACE. PT ORIENTED TO ROOM AND CALL LIGHT. PT EDUCATED ON BED CALL LIGHTS AND ENSURED IN WORKIN ORDER. PT UNABLE TO ASNWER QUESTIONS ABOUT HOME MEDS. REGULAR INTERVAL ROUNDING COMPLETE TO ASSESS AND MEET NEEDS. WCTM UNTIL REPORT GIVEN TO ONCOMING NURSE.
[2024-06-04 05:59] LABS: BASOPHILS ABSOLUTE AUTO 0.14 K/mm3 (0.00-0.23); BASOPHILS PERCENT AUTO 2 % (0-2); EOSINOPHILS ABSOLUTE AUTO 0.02 K/mm3 (0.00-0.68); EOSINOPHILS PERCENT AUTO 0 % (0-6); Hematocrit 33.4 % (33.0-51.0); Hemoglobin 10.9 g/dL (11.5-16.0); IMMATURE GRAN ABSOLUTE AUTO 0.41 K/mm3 (0.00-0.10); IMMATURE GRAN PERCENT AUTO 5 % (0-1); LYMPHOCYTES PERCENT AUTO 18 % (21-46); MONOCYTES ABSOLUTE AUTO 0.26 K/mm3 (0.16-1.47); MONOCYTES PERCENT AUTO 3 % (4-13); Mean Corpuscular HGB 26.6 pg (26.0-34.0); Mean Corpuscular HGB Conc 32.6 g/dL (31.5-36.5); Mean Corpuscular Volume 82 fL (80-100); Mean Platelet Volume 8.6 fL (9.1-12.4); NEUTROPHILS ABSOLUTE AUTO 5.64 K/mm3 (1.96-9.15); NEUTROPHILS PERCENT AUTO 72 % (41-73); Platelet Count 420 K/mm3 (150-400); RDW Coefficient Variation 13.8 % (11.7-14.2); RDW Standard Deviation 40.9 fL (35.1-46.3); White Blood Cell Count 7.87 K/mm3 (4.00-11.30)
[2024-06-04 06:22] LABS: Albumin, Blood 2.4 g/dL (3.4-5.0); Albumin/Globulin Ratio 0.6 (0.8-1.8); Bilirubin, Total 0.4 mg/dL (0.1-1.0); Bun/Creatinine Ratio 12.7 (12.0-20.0); Calcium, Blood 8.5 mg/dL (8.5-10.1); Creatinine, Blood 0.55 mg/dL (0.40-1.00); Globulin, Blood 4.1 g/dL (2.2-4.0); Potassium, Blood 4.5 mmol/L (3.5-5.5); Total Protein, Blood 6.5 g/dL (6.4-8.2)
[2024-06-04 07:52] VITALS: BP 118/52
[2024-06-04] MEDS ORDERED: levETIRAcetam 1,000 MG in NS 100 ML IV SCH (09:00)
[2024-06-04] MEDS ORDERED: AMOCLA875 PO (13:41)
[2024-06-04] MEDS ORDERED: METO5A PO (13:54)
--- NOTE | 2024-06-04 14:37 | NUR ---
SHIFT/DISCHARGE SUMMARY: PATIENT A/OX3, CALM, PLEASANT AND COOPERATIVE c CARE. PATIENT DENIES CP/PRESSURE, N/V, SOB AND DIZZINESS. PATIENT ON TELE, SR HR IN THE HIGH 70'S BPM c 1ST DHB/BBB. PATIENT HAD ST EVAL THIS AM, RECOMMENDING REGULAR TEXTURE DIET, TOLERATING DIET WELL. PATIENT RECEIVED IV SCHEDULED IV ABX/MEDS PER EMAR. PATIENT INCONTINENT OF BLADDER, PUREWICK IN PLACED. PATIENT HAS HAD NO NEW CONCERNED OR DENIES ANY CONPLAINTS THIS SHIFT. PATIENT REQUESTING TO GO HOME TODAY. HOME O2 EVAL DONE. PIV DC'D. PATIENT DISCHARGE HOME. DISCHARGE INSTRUCTIONS PACKET GIVEN TO PATIENT/DAUGHTER AT BEDSIDE. PATIENT/DAUGHTER EDUCATED ON ADMITTING DX'S OF ACUTE RESP FAILURE c HYPOXIA, S/S, TX, NEW RX AND TO F/U c PCP. PATIENT AND DAUGHTER VERBALIZED UNDERSTANDING AND NO FURTHER QUESTIONS AT THIS TIME. RX WAS FAXED TO PATIENT PREFERRED [id number]. ALL PERSONAL BELONGINGS WERE SENT HOME c THE PATIENT AND LEFT THE ROOM VIA WHEELCHAIR AT 1421.
[2024-06-09] MEDS ORDERED: AMOCLA875 PO (21:59)
[2024-06-09] MEDS ORDERED: Aspir 8181 MG PO (22:00)
== END 2024-06-04 15:48 | disposition home health service (06) ==
LOC: ER 10:11 → MEDS 10:12 → ER 22:09 → ERHOLD 22:09 → MEDS 22:09 → ERHOLD 06-04 01:51 → MEDS 06-04 01:51 → ENPENDDIS 06-04 13:44 → MEDS 06-04 15:48
PROVIDERS: Emergency Medicine; Student in an Organized Health Care Education/Training Program; ADMIT Internal Medicine
DX: J96.01 Acute respiratory failure with hypoxia (principal); E86.0 Dehydration; I10 Essential (primary) hypertension; E78.5 Hyperlipidemia, unspecified; E03.9 Hypothyroidism, unspecified; Z79.82 Long term (current) use of aspirin; Z79.899 Other long term (current) drug therapy; Z88.2 Allergy status to sulfonamides; Z91.041 Radiographic dye allergy status; Z86.718 Personal history of other venous thrombosis and embolism
CPT/HCPCS: 36415; 71046; 71260; 80053; 81001; 83735; 83880; 84484; 85025; 87077; 87086; 87186; 87428-QW; 92610; 93005; 93010; 96365; 96366; 96368; 96375; 99285-25; A9270; J0295; J1200; J1650; J1953; J2470; J2765; J2919; J3475; J3480; J7030; P9047; Q9967

== ENCOUNTER 2024-06-09 13:24 | Inpatient (IN) | payer MEDICARE, OTHER ==
[~2024-06-09] VITALS: Ht 165.1 cm; Wt 57.6 kg
[~2024-06-09 13:24] MED LIST changes: +AMOCLA875 PO; +Aspir 8181 MG PO; +C COMPLEX1000 M1 PO; +DOCU100 PO; +EUTHYROX100 MC1 PO; -Enoxaparin 40 MG/0.4 ML SYR SC SCH; +FURO20 PO; +LEVETIRACETAM1000 M1 PO; +METO5A PO; +Ondansetron Odt8 MG MM; +VITAMIN B121000 MCG PO
[2024-06-09 14:17] LABS: BASOPHILS ABSOLUTE AUTO 0.22 K/mm3 (0.00-0.23); BASOPHILS PERCENT AUTO 3 % (0-2); EOSINOPHILS ABSOLUTE AUTO 3.18 K/mm3 (0.00-0.68); EOSINOPHILS PERCENT AUTO 36 % (0-6); Hematocrit 37.9 % (33.0-51.0); Hemoglobin 12.8 g/dL (11.5-16.0); IMMATURE GRAN ABSOLUTE AUTO 0.37 K/mm3 (0.00-0.10); IMMATURE GRAN PERCENT AUTO 4 % (0-1); LYMPHOCYTES ABSOLUTE AUTO 2.49 K/mm3 (0.84-5.20); LYMPHOCYTES PERCENT AUTO 28 % (21-46); MONOCYTES ABSOLUTE AUTO 0.77 K/mm3 (0.16-1.47); MONOCYTES PERCENT AUTO 9 % (4-13); Mean Corpuscular HGB 26.5 pg (26.0-34.0); Mean Corpuscular HGB Conc 33.8 g/dL (31.5-36.5); Mean Corpuscular Volume 79 fL (80-100); Mean Platelet Volume 9.4 fL (9.1-12.4); NEUTROPHILS ABSOLUTE AUTO 1.76 K/mm3 (1.96-9.15); NEUTROPHILS PERCENT AUTO 20 % (41-73); Platelet Count 329 K/mm3 (150-400); RDW Coefficient Variation 14.5 % (11.7-14.2); RDW Standard Deviation 41.3 fL (35.1-46.3); Red Blood Cell Count 4.83 M/mm3 (3.80-5.20); White Blood Cell Count 8.79 K/mm3 (4.00-11.30)
[2024-06-09 15:03] LABS: Albumin, Blood 2.4 g/dL (3.4-5.0); Albumin/Globulin Ratio 0.6 (0.8-1.8); Bilirubin, Total 0.4 mg/dL (0.1-1.0); Bun/Creatinine Ratio 12.4 (12.0-20.0); Calcium, Blood 8.5 mg/dL (8.5-10.1); Creatinine, Blood 0.56 mg/dL (0.40-1.00); Globulin, Blood 4.1 g/dL (2.2-4.0); Potassium, Blood 3.7 mmol/L (3.5-5.5); Total Protein, Blood 6.5 g/dL (6.4-8.2)
[2024-06-09] MEDS ORDERED: NS 1,000 ML IV SCH (15:15)
[2024-06-09 15:19] LABS: Magnesium, Blood 1.6 mg/dL (1.6-2.4); Phosphorus, Blood 2.8 mg/dL (2.5-4.9)
[2024-06-09] MEDS ORDERED: Magnesium Hydroxide Conc 10 ML UDC PO PRN (18:40)
[2024-06-09] MEDS ORDERED: Ondansetron 4 MG TAB PO PRN (18:40)
[2024-06-09] MEDS ORDERED: Lactated Ringer's 1,000 ML IV SCH (18:45)
[2024-06-09] MEDS ORDERED: Bisacodyl 10 MG Supp PR PRN (18:45)
[2024-06-09] MEDS ORDERED: Enoxaparin 30 MG/0.3 ML SYR SC SCH (19:00)
[2024-06-09] MEDS ORDERED: Acetaminophen 500 MG Tab PO PRN (19:30)
[2024-06-09] MEDS ORDERED: Lactobacil 2-S.Thermo-Bifido 1 1 Cap PO SCH (21:00)
[2024-06-09] MEDS ORDERED: Mirtazapine 15 MG SoluTab PO SCH (21:00)
[2024-06-09] MEDS ORDERED: LevETIRAcetam 500 MG Tab PO SCH (21:00)
[2024-06-09 21:45] VITALS: BP 140/57
[2024-06-09] MEDS ORDERED: ATOR20 PO (22:00)
[2024-06-09] MEDS ORDERED: FUROSEMIDE PO (22:02)
[2024-06-09] MEDS ORDERED: METOCLOPRAMIDE H5 M1 PO (22:08)
[2024-06-09] MEDS ORDERED: MIRT15ST PO (23:42)
[2024-06-10] MEDS ORDERED: Lidocaine 4% 1 Patch TOP PRN (02:25)
[2024-06-10] MEDS ORDERED: Ketorolac Tromethamine 15mg Vial IV ONE (02:25)
--- NOTE | 2024-06-10 04:39 | NUR ---
SHIFT SUMMARY NOC PT A/O X 4, [place] WITH BILATERAL HEARING AIDES. PLEASANT AND COOPERATIVE WITH CARE. ADMIT FROM ED WIT DX DEHYDRATION/FTT. PT HAS STAGE 4 STOMACH CANCER AND IS BEING SEEN BY DR LUTHER, PT HAS PET SCAN 06/15/24. PT IS RECEIVING CONTINOUS INFUSION OF LR @ 100 ML/HR TO REHYDRATE AND TO REPLACE SODIUM 126. PT HAS C/O OFL SHOULDER PAIN, BUT DOES NOT KNOW HOW THEY INJURED IT. PT FAMILY CAME UP WITH PT. PT CAME TO FLOOR WITH PUREWICK IN PLACE D/T SEVERE WEAKNESS. PT ALSO HAS SLOW SWALLOW REFLEX AND IS NPO CURRENTLY PENDING ST EVALUATION. PALLIATIVE CONSULT ALSO ORDERED. PT CURRENTLY RESTING WITH BED ALARM ON, BED IN LOWEST POSITION, AND CALL LIGHT WITHIN REACH.
--- NOTE | 2024-06-10 04:42 | NUR ---
SHIFT SUMMARY NOC PT A/O X 4, [place] WITH BILATERAL HEARING AIDES. PLEASANT AND COOPERATIVE WITH CARE. ADMIT FROM ED WIT DX DEHYDRATION/FTT. PT HAS STAGE 4 STOMACH CANCER AND IS BEING SEEN BY DR LUTHER, PT HAS PET SCAN 06/15/24. PT IS RECEIVING CONTINOUS INFUSION OF LR @ 100 ML/HR TO REHYDRATE AND TO REPLACE SODIUM 126. PT HAS C/O OFL SHOULDER PAIN, LIDOCAINE PATCH ON. FAMILY CAME UP WITH PT. PT CAME TO FLOOR WITH PUREWICK IN PLACE D/T SEVERE WEAKNESS. PT ALSO HAS SLOW SWALLOW REFLEX AND IS NPO CURRENTLY PENDING ST EVALUATION. PALLIATIVE CONSULT ALSO ORDERED. PT CURRENTLY RESTING WITH BED ALARM ON, BED IN LOWEST POSITION, AND CALL LIGHT WITHIN REACH.
[2024-06-10] MEDS ORDERED: Levothyroxine Sodium 0.1 MG Tab PO SCH (06:00)
[2024-06-10] MEDS ORDERED: Pantoprazole Sodium 40 MG Tab PO SCH (06:00)
[2024-06-10 06:04] LABS: BASOPHILS PERCENT AUTO 3 % (0-2); EOSINOPHILS ABSOLUTE AUTO 2.08 K/mm3 (0.00-0.68); EOSINOPHILS PERCENT AUTO 26 % (0-6); Hematocrit 38.7 % (33.0-51.0); Hemoglobin 12.9 g/dL (11.5-16.0); IMMATURE GRAN PERCENT AUTO 4 % (0-1); LYMPHOCYTES ABSOLUTE AUTO 2.63 K/mm3 (0.84-5.20); LYMPHOCYTES PERCENT AUTO 33 % (21-46); MONOCYTES ABSOLUTE AUTO 0.81 K/mm3 (0.16-1.47); MONOCYTES PERCENT AUTO 10 % (4-13); Mean Corpuscular HGB 26.4 pg (26.0-34.0); Mean Corpuscular HGB Conc 33.3 g/dL (31.5-36.5); Mean Corpuscular Volume 79 fL (80-100); Mean Platelet Volume 9.4 fL (9.1-12.4); NEUTROPHILS ABSOLUTE AUTO 1.96 K/mm3 (1.96-9.15); NEUTROPHILS PERCENT AUTO 24 % (41-73); Platelet Count 331 K/mm3 (150-400); RDW Coefficient Variation 14.5 % (11.7-14.2); RDW Standard Deviation 41.3 fL (35.1-46.3); Red Blood Cell Count 4.89 M/mm3 (3.80-5.20); White Blood Cell Count 7.98 K/mm3 (4.00-11.30)
--- NOTE | 2024-06-10 06:12 | NUR ---
SHIFT SUMMARY NOC PT A/O X 4, [place] WITH BILATERAL HEARING AIDES. PLEASANT AND COOPERATIVE WITH CARE. ADMIT FROM ED WIT DX DEHYDRATION/FTT. PT HAS STAGE 4 STOMACH CANCER AND IS BEING SEEN BY DR LUTHER, PT HAS PET SCAN 06/15/24. PT IS RECEIVING CONTINOUS INFUSION OF LR @ 100 ML/HR TO REHYDRATE AND TO REPLACE SODIUM 126. PT HAS C/O OFL SHOULDER PAIN, LIDOCAINE PATCH ON. FAMILY CAME UP WITH PT. PT CAME TO UNIT WITH HOME CAMPAIGN MANAGEMENT SPECIALIST DUE TO RECENT SEIZURES. PT ALSO HAS SLOW SWALLOW REFLEX AND IS NPO CURRENTLY PENDING ST EVALUATION. PALLIATIVE CONSULT ALSO ORDERED. PT CURRENTLY RESTING WITH BED ALARM ON, BED IN LOWEST POSITION, AND CALL LIGHT WITHIN REACH.
[2024-06-10 06:43] LABS: Albumin, Blood 2.5 g/dL (3.4-5.0); Albumin/Globulin Ratio 0.6 (0.8-1.8); Bilirubin, Total 0.5 mg/dL (0.1-1.0); Bun/Creatinine Ratio 10.7 (12.0-20.0); Calcium, Blood 8.6 mg/dL (8.5-10.1); Creatinine, Blood 0.47 mg/dL (0.40-1.00); Magnesium, Blood 1.9 mg/dL (1.6-2.4); Potassium, Blood 3.8 mmol/L (3.5-5.5); Total Protein, Blood 6.5 g/dL (6.4-8.2)
[2024-06-10 07:22] VITALS: BP 143/52
[2024-06-10] MEDS ORDERED: Arginine/Glutamine/Calcium Hmb 1 Packet PO SCH ×2 (08:00→09:30)
[2024-06-10] MEDS ORDERED: Magnesium Sulf 2 GM/Water 50ML 50 ML IV ONE (09:15)
[2024-06-10] MEDS ORDERED: Protein Supplement 30 ML UD PO SCH (09:30)
[2024-06-10] MEDS ORDERED: ATORVASTATIN CA20 MG PO (15:20)
[2024-06-10 15:41] VITALS: BP 145/56
--- NOTE | 2024-06-10 16:59 | NUR ---
DISCUSSED CASE IN MULTIDICIPLINARY TEAM MEETING. FAMILY MAY NEED EXTRA EMOTIONAL SUPPORT. ROUNDED ON PATIENT SHE WAS SLEEPING AT THE TIME. APPEARED COMFORTABLE AT THIS TIME. FAMILY HAS BEEN IN AND OUT OF THE ROOM TODAY ACCORDING TO BEDSIDE RN.
[2024-06-10 18:45] LABS: Source, Urine Straight Cath
[2024-06-10 18:54] LABS: Appearance, Urine Clear (Clear); Bilirubin, Urine Neg (Neg); Blood, Urine Neg (Neg); Glucose Qualitative, Urine Neg (Neg); Ketones, Urine Neg (Neg); Leukocyte Esterase, Urine 1+ (Neg); Nitrite, Urine Neg (Neg); Protein, Urine Neg (Neg); Specific Gravity, Urine 1.015 (1.003-1.022); Urobilinogen, Urine NORM (Normal)
--- NOTE | 2024-06-10 18:58 | NUR ---
PT WAS SEEN BY PT TODAY FOR A X2A/GB/W TO BEDSIDE CAMMODE. PT HAS LR RUNNING AT 100ML/HR. PT WAS RETAINING URING BY 1700 WITH A 50ML VOID AND PVR OF 333/ SEDEMENT WAS SEEN IN URIN. THIS URSE CALLED FOR UA AND STRAIGHT CATH ORDRS. STRAIGHT CATH COMPLETED WITH 550 ML OUTPUT AND URIN COLLECTED AND SENT TO LAB. FAMILY AT [facility] WITH NO QUESTIONS OR CONCERNS AT THIS TIME.
[2024-06-10 19:19] LABS: Color, Urine Pale Yellow (P-Yellow)
[2024-06-10 19:20] LABS: Bacteria Few /hpf; Red Blood Cells, Urine 0-2 /hpf (0-2); Squamous Epithelial Cells Not Seen /hpf (Few); Yeast/Fungi Urine Rare /hpf
[2024-06-10 19:39] VITALS: BP 135/60
[2024-06-11 02:13] VITALS: BP 151/60
--- NOTE | 2024-06-11 07:14 | NUR ---
QUALITY INSPECTOR SUMMARY PTS URINARY RETENTION RESOLVED OVERNIGHT. SHE HAD SEVERAL VERY LARGE VOIDS AND THE 2 BLADDER SCANS WE DID WERE NEGATIVE. PT CONTINUES TO BE ON IVF AND REFUSED FOOD AND FLUIDS FOR ME OTHER THAN A FEW SIPS OF JUICE.
[2024-06-11 07:41] VITALS: BP 170/63
[2024-06-11] MEDS ORDERED: LevETIRAcetam 500 MG Tab PO SCH (09:00)
[2024-06-11 16:47] VITALS: BP 127/52
--- NOTE | 2024-06-11 17:12 | NUR ---
NO CHANGES IN PT STATUS. PT STILL VERY LETHARGIC WITH POOR PO INTAKE WITH FOOD AND FLUIDS. PT HAD NO C/O PAIN DURING THE SHIFT. PT AND LOVED ONES HAVE NO QUESTIONS OR CONCERNS.
[2024-06-11 19:28] VITALS: BP 121/84
[2024-06-12 03:20] VITALS: BP 121/63
--- NOTE | 2024-06-12 04:22 | NUR ---
NETWORK INTERNSHIP SUMMARY PT APPEARS TO BE MORE THIRSTY IN COMPARISON TO LAST SHIFT NOW THAT SHE IS OFF THE IV FLUIDS. SHE HAS ASKED FOR HELP DRINKING FLUIDS SEVERAL TIMES, AND WE HAVE BROUGHT HER SEVERAL DIFFERENT OPTIONS. SHE DRANK A FEW JUICES, 2 ICE ALFRED AND HALF AN ENSURE. SHE HAS BEEN VOIDING ADEQUATELY WITH A NEGATIVE BLADDER SCAN. PT REPOSITIONED EVERY 2 HOURS AND OFFERED FOOD/FLUIDS DURING TURNS.
[2024-06-12 07:24] VITALS: BP 138/59
[2024-06-12] MEDS ORDERED: DiphenhydrAMINE HCl 50 MG/ML 1ML Vial IV ONE (11:30)
[2024-06-12] MEDS ORDERED: MethylPREDNISolone Sod Succ 40 MG VIAL IV ONE (11:30)
[2024-06-12 15:11] VITALS: BP 137/72
[2024-06-12] MEDS ORDERED: ACET500 PO (16:21)
[2024-06-12] MEDS ORDERED: MIRT15ST PO (16:22)
--- NOTE | 2024-06-12 18:07 | NUR ---
PT AOX1-2 VERY SOMULENT TODAY. NEEDED TURNED Q2HRS. DR MELENDREZ ORDERED CT WITH CONTRAST PT HAS ALERGY AND WAS TREATED FOR REACTION PER EMAR PRIOR TO CT. PT DID HAVE RASH AFTER CONTRAST. DR MELENDREZ RECOMMENDED FAMILY TO TREAT WITH OVER THE COUNTER BENADRYL IF NEEDED LATER TONIGHT.
[2024-06-12] MEDS ORDERED: levETIRAcetam 750 MG in NS 100 ML IV SCH (21:00)
== END 2024-06-12 17:55 | disposition home health service (06) | DRG 641 ==
LOC: ER 13:24 → MEDS 13:25 → ERHOLD 13:25 → MEDS 21:32
PROVIDERS: Student in an Organized Health Care Education/Training Program; ADMIT Family Medicine
DX: E87.1 Hypo-osmolality and hyponatremia (principal); C16.9 Malignant neoplasm of stomach, unspecified; I82.403 Acute embolism and thrombosis of unspecified deep veins of lower extremity, bilateral; R64 Cachexia; Z66 Do not resuscitate; E86.0 Dehydration; E83.42 Hypomagnesemia; R62.7 Adult failure to thrive; K21.9 Gastro-esophageal reflux disease without esophagitis; Z68.21 Body mass index [BMI] 21.0-21.9, adult; G40.909 Epilepsy, unspecified, not intractable, without status epilepticus; E03.9 Hypothyroidism, unspecified; H91.90 Unspecified hearing loss, unspecified ear; Z88.2 Allergy status to sulfonamides; Z91.041 Radiographic dye allergy status; Z90.710 Acquired absence of both cervix and uterus; Z98.49 Cataract extraction status, unspecified eye
CPT/HCPCS: 36415; 71260; 74177; 80053; 81001; 83735; 84100; 85025; 87086; 92610; 96372; 96374; 96375; 97110; 97162; 97530; 99284-25; A9270; G0378; J1200; J1650; J1885; J1953; J2919; J3475; J7030; J7120; Q9967

== ENCOUNTER → 2024-06-17 | Outpatient (CLI) | payer MEDICARE, OTHER ==
[~2024-06-17] MED LIST changes: +ACET500 PO; +ATOR20 PO; +ATORVASTATIN CA20 MG PO; +FUROSEMIDE PO; +METOCLOPRAMIDE H5 M1 PO; +MIRT15ST PO
[2024-06-17 14:50] LABS: Source, Urine Voided
[2024-06-17 16:49] LABS: Appearance, Urine Hazy (Clear); Bilirubin, Urine Neg (Neg); Blood, Urine 1+ (Neg); Color, Urine Yellow (P-Yellow); Glucose Qualitative, Urine Neg (Neg); Ketones, Urine Neg (Neg); Leukocyte Esterase, Urine 3+ (Neg); Nitrite, Urine Pos (Neg); Protein, Urine 1+ (Neg); Specific Gravity, Urine 1.015 (1.003-1.022); Urobilinogen, Urine NORM (Normal)
[2024-06-17 17:09] LABS: Bacteria Many /hpf; Red Blood Cells, Urine 0-2 /hpf (0-2); Squamous Epithelial Cells Rare /hpf (Few)
== END ==
LOC: LAB SHORT 14:46 → LAB 14:46
PROVIDERS: Internal Medicine
DX: R34 Anuria and oliguria (principal)
CPT/HCPCS: 81001; 87077; 87086; 87186